=== PATIENT | male | born 1995 | race Caucasian/White ===

== ENCOUNTER 2022-01-09 19:41 | Emergency (ER) | payer SELFPAY ==
[2022-01-09] MEDS ORDERED: Sodium Chloride 0.9% 10 ML Syringe FLUSH PRN (20:16)
[2022-01-09] MEDS ORDERED: Ondansetron 4 MG/2 ML SDV IVPUSH ONE (20:16)
[2022-01-09] MEDS ORDERED: Sodium Chloride 0.9% 1,000 ML IV ONE (20:16)
[2022-01-09] MEDS ORDERED: Sodium Chloride 0.9% 2.5 ML Syringe FLUSH PRN (20:16)
[2022-01-09] MEDS ORDERED: LORazepam 2 MG/ML SDV IVPUSH ONE (20:17)
[2022-01-09 20:20] LABS: CARBON DIOXIDE,CO2 22.1 mmol/L (21.0-32.0)
== END 2022-01-09 22:04 | disposition home or self-care (01) ==
LOC: MW.ED 19:41
DX: R56.9 Unspecified convulsions (principal); F10.10 Alcohol abuse, uncomplicated; Z88.6 Allergy status to analgesic agent
CPT/HCPCS: 36415; 70450; 80053; 81001; 82947; 83735; 85025; 93005; 96374; 96375; 99285; J2060; J2405; J3490; J7030